=== PATIENT | female | born 1995 | race African-American/Black ===

== ENCOUNTER 2017-05-25 21:23 | Emergency (ER) | payer OTHER ==
[~2017-05-25] VITALS: Ht 154.9 cm; Wt 61.2 kg
[2017-05-25 21:34] VITALS: Ht 154.9 cm; Wt 61.2 kg
[2017-05-25 23:09] LABS: BASOPHIL % 0.8 % (0-2); PLATELET COUNT 363 x10^3mcL (130-400); RED CELL DISTRIBUTION WIDTH 12.9 % (11.5-14.5)
[2017-05-25 23:18] LABS: ALBUMIN 4.2 g/dL (3.4-5.0); ALKALINE PHOSPHATASE 85 U/L (46-116); ALT/SGPT 23 U/L (14-59); AST/SGOT 23 U/L (15-37); BILIRUBIN TOTAL 0.28 mg/dL (0.20-1.00); CALCIUM 9.5 mg/dL (8.5-10.1); CARBON DIOXIDE 27.2 mmol/L (21-32); CHLORIDE SERUM 105 mmol/L (98-107); GFR1 > 60 mL/min; GLUCOSE FASTING 82 mg/dL (70-110); GLUCOSE SERUM 82 mg/dL (74-106); SODIUM SERUM 141 mmol/L (136-145)
[2017-05-25 23:24] LABS: microscopic required? YES; urine erythrocyte 2+ (NEGATIVE)
[2017-05-26 00:25] VITALS: BP 136/86
== END 2017-05-26 00:25 | disposition home or self-care (01) ==
LOC: ED 21:23
PROVIDERS: Emergency Medicine
DX: E87.6 Hypokalemia (principal)
CPT/HCPCS: 36415; 82947